=== PATIENT | female | born 1985 | race Caucasian/White ===

== ENCOUNTER 2018-02-09 07:30 | Inpatient (IN) | payer BC ==
[~2018-02-09 07:30] MED LIST: Buffered Lidocaine 0.9% SYRIN* 5 ML/SYR SYRINGE INTRADERM ONE; Dexamethasone IV* 4 MG/ML 1 ML (4 MG) IV SLOW PU ONE; Famotidine IV* 10 MG/ML 2 ML (20 mg) IV ONE
[2018-02-09] MEDS ORDERED: Dexamethasone IV* 4 MG/ML 1 ML (4 MG) ONE (09:05)
[2018-02-09] MEDS ORDERED: Famotidine IV* 10 MG/ML 2 ML (20 mg) ONE (09:05)
[2018-02-09] MEDS ORDERED: Heparin VIAL(*) 5000 UNITS/ML VIAL (FIVE THOUSAND) ONE (09:05)
[2018-02-09] MEDS ORDERED: ceFAZolin 2 GM PREMIX (*) 2 GM/50 ML BAG IVPB ONE (09:06)
[2018-02-09] MEDS ORDERED: fentaNYL* 50 MCG/ML 2 ML VIAL (100 MCG VIAL) ONE ×2 (09:27→12:21)
[2018-02-09] MEDS ORDERED: Midazolam* 1 MG/ML 2 ML VIAL (2 MG) ONE (09:28)
[2018-02-09] MEDS ORDERED: Rocuronium* 10 MG/ML VIAL ONE ×2 (09:35→10:51)
[2018-02-09] MEDS ORDERED: Methylene Blue 0.5 %* 50 MG/10 ML AMP IV ONE (10:06)
[2018-02-09] MEDS ORDERED: Bupivacaine 0.25% W/EPI* 10 ML SDV ONE ×2 (10:06→10:42)
[2018-02-09] MEDS ORDERED: Scopolamine 1.5 mg* PATCH ONE (10:13)
[2018-02-09] MEDS ORDERED: PROCHLORPERAZINE INJ 5 MG/ML 2 ML VIAL IV PRN (10:19)
[2018-02-09] MEDS ORDERED: Acetaminophen IV 1GM/100ML * 1,000 MG/100 ML VIAL IVPB ONE (10:19)
[2018-02-09] MEDS ORDERED: Naloxone* 0.4 MG/ML 1 ML VIAL IV PRN (10:19)
[2018-02-09] MEDS ORDERED: Morphine INJ* 2 MG/ML 1 ML SYRINGE (TWO MG - NEW SYRINGE VERSION) IV PRN (10:19)
[2018-02-09] MEDS ORDERED: Ondansetron INJ* 2 MG/ML VIAL IV PRN ×2 (10:19→13:07)
[2018-02-09] MEDS ORDERED: fentaNYL* 50 MCG/ML 2 ML VIAL (100 MCG VIAL) IV PRN (10:19)
[2018-02-09] MEDS ORDERED: DiMENhydriNATE IV* 50 MG/ML VIAL IV PUSH PRN (10:19)
[2018-02-09] MEDS ORDERED: Lidocaine 2% PF * 5 ML VIAL ONE (12:11)
[2018-02-09] MEDS ORDERED: Propofol* 10 MG/ML 20 ML BTL IV PUSH ONE (12:11)
[2018-02-09] MEDS ORDERED: Acetaminophen ADULT LIQ* 650 MG/20.3 ML UDC PO PRN (13:07)
[2018-02-09] MEDS ORDERED: diPHENhydraMINE IV* 50 MG/ML 1 ml VIAL (BENADRYL) SLOW PUSH PRN (13:07)
[2018-02-09] MEDS ORDERED: HYDROmorphone INJ1* 1 MG/ML SYRINGE IV PRN (13:07)
[2018-02-09] MEDS ORDERED: HYDROcodone/ACET. 7.5/325 LIQ* 15 ML UDC PO PRN (13:07)
[2018-02-09] MEDS ORDERED: Neostigmine Methylsulfate* 1 MG/ML 10 ML VIAL (1 mg/ml) ONE (13:07)
[2018-02-09] MEDS ORDERED: Glycopyrrolate IV* 0.2 MG/ML 1 ML VIAL ONE (13:07)
[2018-02-09] MEDS ORDERED: Ondansetron INJ* 2 MG/ML VIAL ONE ×2 (13:07→13:56)
--- NOTE | 2018-02-09 13:07 | BRIEFOPN ---
Brief Operative Note - Surgery Procedures: Procedures Pre-OP Diagnoses: Clinically severe obesity Post-op Diagnosis: same Procedure: Laparoscopic Kathie an Y gastric bypass Surgeon: Hillary Asst: Aries Anethesia: DALE EBL: minimal IVF: 1000cc LR Specimen: none Drains: none
[2018-02-09] MEDS ORDERED: Acetaminophen IV 1GM/100ML * 100 ML ONE (13:35)
[2018-02-09] MEDS ORDERED: Ketorolac INJ* 30 MG/ML 1 ML VIAL ONE (13:35)
[2018-02-09] MEDS ORDERED: DiMENhydriNATE IV* 50 MG/ML VIAL ONE (13:35)
[2018-02-09] MEDS: Ketorolac INJ* 30 MG/ML 1 ML VIAL IV PRN ×2 (13:39→21:44)
[2018-02-09] MEDS ORDERED: PROCHLORPERAZINE INJ 5 MG/ML 2 ML VIAL ONE (13:56)
[2018-02-09] MEDS ORDERED: Desflurane* 240 ML INH ONE (14:12)
[2018-02-09] MEDS ORDERED: Morphine INJ* 2 MG/ML 1 ML SYRINGE (TWO MG - NEW SYRINGE VERSION) ONE (14:21)
[2018-02-09] MEDS: HYDROmorphone INJ* 0.5 MG/0.5 ML SYRINGE IV PRN ×2 (15:38→18:06)
[2018-02-09] MEDS: Heparin VIAL(*) 5000 UNITS/ML VIAL (FIVE THOUSAND) SUBCUT SCH (16:54)
--- NOTE | 2018-02-09 17:43 | OP ---
CC: Dr. Itz Vanegas; [facility] * DATE OF OPERATION: 02/09/18 - ROOM #352 DATE OF : 81 SURGEON: Dirk Thornton MD [employer]: RJ Fernandez ANESTHESIOLOGIST: Dr. Garvey. ANESTHESIA: General anesthesia. PRE-OP DIAGNOSIS: Clinically severe obesity. POST-OP DIAGNOSIS: Clinically severe obesity. OPERATIVE PROCEDURE: Laparoscopic Kathie-en-Y gastric bypass. ESTIMATED BLOOD LOSS: Minimal. FLUIDS: 1 L of crystalloid fluid given. SPECIMENS: None. COUNTS: Lap, pad count and instrument counts are correct at the end of the procedure. DESCRIPTION OF PROCEDURE: The patient was seen in the preoperative area, marked. Consent was signed. The patient's questions were answered. She was taken to the operating room and placed on the operating table in supine position. Preoperative antibiotics were given. Sequential devices were placed on bilateral lower extremities. General anesthesia was induced. The patient's abdomen was prepped and draped in standard surgical fashion. A time-out was performed. Folds of the umbilicus were elevated anteriorly and a Veress needle was attempted to be inserted into the abdomen. It proved somewhat difficult and it was abandoned and a left upper quadrant incision was made at Gonzales's point. This was deepened down to the anterior fascia, which was elevated with a Juan A and a Veress needle inserted into the abdominal cavity, which was then allowed to insufflate to a pressure of 15 mmHg. The patient tolerated the insufflation well. An upper midline incision was then made and a 12-mm trocar was inserted. Laparoscope was inserted through this. There was no evidence of injury from the trocar insertion or from the Veress needle. Veress needle was removed. Review of the umbilicus, it appeared that we never ever entered the abdomen with the Veress needle. There was some excessive preperitoneal fat at the site of the umbilicus. Additional trocars were then placed in the following position: A 12-mm and 5- mm in the left upper quadrant and a 12-mm and a 5-mm in the right upper quadrant. Attention was turned towards the omentum. This was easily retracted superiorly. The transverse colon was identified and retracted anteriorly and the ligament of Treitz was identified. Approximately 50 cm was counted off in the ligament of Treitz. The bowel was transected at this site and an enterotomy was made. It would become the biliopancreatic limb. We undercut the mesentery with LigaSure device only for about 2 cm. It would become the Kathie limb. We counted approximately 80 cm of Kathie limb. An enterotomy was made and a jejunojejunostomy was created in a standard fashion with a 60-mm street NATE stapling device and the common defect reapproximated with interrupted 2-0 silk sutures in a xexsny-[id number] fashion. The mesenteric defect was similarly closed. We did use clip traveling passenger agent on the Kathie limb for hemostasis as there was some oozing at the staple line. Next, the table was placed in a steep reverse Trendelenburg and a Lauren retractor was inserted through a subxiphoid incision and the left aspect of the liver was retracted anteriorly into the right. This exposed a small gastroesophageal fat pad. Blunt and sharp dissection was carried out to expose the left enriqueta and the angle of His. There was no evidence of hiatal hernia. Next, a retrogastric tunnel was made at approximately the third crossing vessel on the lesser curvature of the stomach. We fired a 45-mm street NATE stapling device across this and used the 2 additional 60-mm street NATE stapling devices to complete the stomach pouch. The second staple line crossed the first staple line and was of appropriate size and we fired this after placing the Pako tube into the stomach pouch to give an idea of the sizing. Next, review of the site, we did place a clip at the top of the stomach pouch and also at the remnant stomach before we fully transected the pouch from the remnant. Staple line did go all the way through, but the cutting did not and for this reason I placed clips at the site. Next, the Kathie limb was brought in apposition to the stomach pouch. There was no tension. We then used 2-0 silk sutures for stay sutures taking the antimesenteric portion of the small bowel Kathie limb and suturing it to the lateral staple of the pouch. Next, a gastrostomy was made over the Pako tube and enterotomy was made at the small bowel, both with cautery. We then utilized the 30-mm street NATE stapling device, placed it into the stomach and small bowel and sutured them with approximately 2 cm of the full distance. The staple line appeared intact and we closed the common defect with 3-0 PDS starting superiorly and inferiorly and tying them in the middle. These were running sutures and closed the defect nicely. We were able to place the Pako tube through the anastomosis into the proximal Kathie limb. A methylene blue dye test was then performed in a standard fashion. There was no evidence of leakage of the blue dye, which was then suctioned back by the anesthesiologist through the tubing. An additional 2-0 silk suture was placed as a second closure overlying the previous PDS suture. We did this in a U fashion. We were able to pass the Pako tube back through the anastomosis with ease and then the Pako tube was removed altogether. This suture was tied. Review of the anastomosis showed no evidence of dehiscence. We looked at the jejunojejunostomy, which was intact without bleeding. There was some blood clot. The table was placed back to neutral. The liver retractor was removed and the abdomen was allowed to collapse. Trocars were removed under direct vision and all 6 skin incisions were reapproximated with 4- 0 Monocryl subcuticular sutures followed by Steri-Strips and sterile dressing. The patient tolerated the procedure well. [id number]/[facility] #: [id number] CAT[place]INA
[2018-02-09] MEDS: Famotidine IV* 10 MG/ML 2 ML (20 mg) IV SLOW PU SCH (20:58)
[2018-02-10] MEDS: Heparin VIAL(*) 5000 UNITS/ML VIAL (FIVE THOUSAND) SUBCUT SCH ×2 (00:28→08:56)
[2018-02-10] MEDS: HYDROmorphone INJ* 0.5 MG/0.5 ML SYRINGE IV PRN (02:54)
[2018-02-10] MEDS: Famotidine IV* 10 MG/ML 2 ML (20 mg) IV SLOW PU SCH (08:56)
[2018-02-10] MEDS: Ketorolac INJ* 30 MG/ML 1 ML VIAL IV PRN (08:57)
--- NOTE | 2018-02-10 09:25 | RAD ---
INDICATION: One day status post Gastric Kathie-en-Y procedure. A evaluate for extravasation or obstruction COMPARISON: None TECHNIQUE: Barium was administered per os and digital fluoroscopy was performed with cine loop and digital spot imaging of the esophagus and operative site. 0.4 minutes of fluoroscopy was utilized. Esophagus: The distal esophagus is normal in caliber and motility. There are no mucosal irregularities GE junction: The GE junction is normally positioned. There is no hiatal hernia. There is no gastroesophageal reflux Stomach: There is gastric Kathie-en-Y procedure. There are no findings of obstruction or extravasation. Delayed imaging demonstrates normal egress of contrast.. IMPRESSION: NORMAL POSTOPERATIVE APPEARANCE. NO EVIDENCE OF OBSTRUCTION OR EXTRAVASATION. CPT II Codes: G9500 PQRS (Fluoro time doc)
--- NOTE | 2018-02-10 11:08 | PN ---
Progress Note - Progress Note Date of Service: 02/10/18 SOAP: Subjective: Pt seen and examined. Feeling well. Wants to go home today no pain Objective: Temp Pulse Resp BP Pulse Ox 97.9 F 66 20 131/70 97 02/10/18 08:52 02/10/18 08:52 02/10/18 08:52 02/10/18 08:52 02/10/18 08:52 Intake & Output 02/09/18 02/10/18 02/10/18 22:59 06:59 14:59 Intake Total 985 985 980 Output Total 1550 300 Balance -565 685 980 a and o x3 lungs clear abdo ; soft/ ND/ NT dressing cdi ext wnl ugi wnl Assessment: pod 1 rygb Plan: PO diet d/c planning - possibly later today
[2018-02-10] MEDS ORDERED: Citalopram TAB* 20 MG PO SCH (13:00)
[2018-02-10] MEDS ORDERED: D5W 1/2 NS KCl 20 Meq 1000 ML* 1,000 ML IV SCH (13:08)
[2018-02-10 14:14] VITALS: BP 131/77
--- NOTE | 2018-02-10 21:17 | DS ---
CC: Dr. Vanegas * DISCHARGE SUMMARY: DATE OF ADMISSION: 02/09/18 DATE OF DISCHARGE: 02/10/18 ATTENDING SURGEON: Dr. Dirk Thornton.* (DICTATED BY MANJINDER MATHIS NP) HOSPITAL COURSE: Please refer to admission history and physical for admission details. The patient was taken to the operating room on 02/09/18, and underwent laparoscopic Kathie-en-Y gastric bypass by Dr. Thornton. She had an uneventful postoperative course, required minimal pain medication and was able to meet the criteria for oral intake of bariatric clear liquids. She was ambulating in the halls and using her Inspiron. She was seen early this morning by Dr. Thornton and by myself this afternoon and she met criteria for discharge. PHYSICAL EXAMINATION: General: Well appearing, in no acute distress. Vital signs are stable. She is afebrile. Her O2 saturation on room air 97%. Lungs: Breath sounds bilaterally clear and equal. Heart: Regular rate and rhythm. No murmurs or rubs appreciated. Abdomen: Laparoscopic port sites are intact with dressings, which are clean and dry. There is no surrounding erythema; she has active bowel sounds. Her abdomen is obese and soft with mild incisional tenderness. Extremities are warm without edema and there is no calf tenderness. IMPRESSION: Postoperative day 1 status post laparoscopic Kathie-en-Y gastric bypass, doing extremely well. PLAN: Discharge home today; instructions were reviewed with the patient; she has a followup office visit at [facility] with Dr. Thornton on 02/18/18. All of her medications were reviewed; she has a prescription for Lortab elixir as needed and she may use [id number] Tylenol for mild pain. MANJINDER MATHIS, LEXY [id number]/[facility] #: [id number] [place]
== END 2018-02-10 15:20 | disposition home or self-care (01) | DRG 403 ==
LOC: AA 08:54 → SSU 14:52
PROVIDERS: ADMIT Surgery; ATTEND Surgery
PROC: 0D164ZA Bypass Stomach to Jejunum, Percutaneous Endoscopic Approach (ICD-10-PCS; principal; 2018-02-10)
DX: E66.01 Morbid (severe) obesity due to excess calories (principal); Z68.41 Body mass index [BMI] 40.0-44.9, adult; F41.9 Anxiety disorder, unspecified; M06.9 Rheumatoid arthritis, unspecified; G47.33 Obstructive sleep apnea (adult) (pediatric); K21.0 Gastro-esophageal reflux disease with esophagitis; Z90.49 Acquired absence of other specified parts of digestive tract; Z82.3 Family history of stroke; Z80.41 Family history of malignant neoplasm of ovary; Z87.891 Personal history of nicotine dependence
CPT/HCPCS: 43644; 74246; 81025; A9270-GY; C1776; J0690; J0780; J1100; J1170; J1240; J1644; J1885; J2250; J2270; J2405; J2704; J2710; J3010

== ENCOUNTER 2018-09-23 22:56 | Emergency (ER) | payer BC ==
[2018-09-24] MEDS ORDERED: NS 0.9% 1000 ML** 2,000 ML IV ONE (00:53)
--- NOTE | 2018-09-24 00:57 | ED ---
Abdominal Pain/Female - HPI Summary HPI Summary: The patient is a 33 year old female who is presenting to the [facility] with a chief complaint of abd pain. The abd pain is intermittent at the RUQ. She has received Bariatric surgery 6 months ago as per triage report. She reports of vomiting that first occurred two nights ago. The episodes stopped at 0400 yesterday Diarrhea has been constant as per patient reports. Symptoms have been improving and the nausea is currently no longer present. Patient states she has not eaten food today (decreased appetite). Medication taken include Imodium and pepto bismol. The last episode of Diarrhea was at 2100 yesterday. The pain is rated to be 5/10 in severity. Symptoms are aggravated by nothing. Symptoms are alleviated by nothing. - History of Current Complaint Chief Complaint: Andrew Stated Complaint: "ABD PAIN/SOB" PER PT Time Seen by Provider: 09/24/18 00:45 Hx Obtained From: Patient Onset/Duration: Sudden Onset Severity Initially: Moderate Severity Currently: Moderate Pain Intensity: 5 Pain Scale Used: 0-10 Numeric Aggravating Factor(s): Nothing Alleviating Factor(s): Nothing Associated Signs and Symptoms: Positive: Diarrhea, Other: - Currently Denie vomitting; Last episode 0400 yesterday.. Negative: Nausea Allergies/Adverse Reactions: Allergies Allergy/AdvReac Type Severity Reaction Status Date / Time No Known Allergies Allergy Verified 02/09/18 09:19 PMH/Surg Hx/FS Hx/Imm Hx Respiratory History: Reports: Hx Sleep Apnea Musculoskeletal History: Reports: Hx Arthritis - RIGHT KNEE Sensory History: Reports: Hx Contacts or Glasses - INSTRUCTS GIVEN Denies: Hx Hearing Aid Opthamlomology History: Reports: Hx Contacts or Glasses - INSTRUCTS GIVEN Psychiatric History: Reports: Hx Anxiety - Taking celexa, Hx Depression - taking celexa - Surgical History Surgery Procedure, Year, and Place: CHOLECYSTECTOMY. bariatric sx Hx Anesthesia Reactions: Yes - EPIDURAL-DIDN'T TAKE, wisdom teeth- trouble coming out of anesthesia Infectious Disease History: No Infectious Disease History: Denies: Traveled Outside the [place] in Last 30 Days - Family History Known Family History: Positive: Cardiac Disease - CVA, Other - Obesity - Social History Alcohol Use: None Substance Use Type: Reports: None Smoking Status (MU): Never Smoked Tobacco Amount Used/How Often: 1/2 PPD Length of Time of Smoking/Using Tobacco: 10 YRS Have You Smoked in the Last Year: No Review of Systems Positive: Other - Decreased Appetite Eyes: Negative ENT: Negative Cardiovascular: Negative Respiratory: Negative Positive: Abdominal Pain - RUQ, Diarrhea, Other - Negative N/V at this time Genitourinary: Negative Musculoskeletal: Negative Skin: Negative Neurological: Negative Psychological: Normal All Other Systems Reviewed And Are Negative: Yes Physical Exam - Summary Physical Exam Summary: VITAL SIGNS: Reviewed. GENERAL: Patient is a well-developed and nourished (FEMALE) who is lying comfortable in the stretcher. Patient is not in any acute respiratory distress. HEAD AND FACE: No signs of trauma. No ecchymosis, hematomas or skull depressions. No sinus tenderness. EYES: PERRLA, EOMI x 2, No injected conjunctiva, no nystagmus. EARS: Hearing grossly intact. Ear canals and tympanic membranes are within normal limits. MOUTH: Oropharynx within normal limits. NECK: Supple, trachea is midline, no adenopathy, no JVD, no carotid bruit, no c- spine tenderness, neck with full ROM. CHEST: Symmetric, no tenderness at palpation LUNGS: Clear to auscultation bilaterally. No wheezing or crackles. CVS: Regular rate and rhythm, S1 and S2 present, no murmurs or gallops appreciated. ABDOMEN: Soft, non-tender. No signs of distention. No rebound no guarding, and no masses palpated. Hyperactive Bowel Sounds EXTREMITIES: FROM in all major joints, no edema, no cyanosis or clubbing. NEURO: Alert and oriented x 3. No acute neurological deficits. Speech is normal and follows commands. SKIN: Dry and warm Triage Information Reviewed: Yes Vital Signs On Initial Exam: Initial Vitals Temp Pulse Resp BP Pulse Ox 98.2 F 92 20 104/77 99 09/23/18 23:04 09/23/18 23:04 09/23/18 23:04 09/23/18 23:04 09/23/18 23:04 Vital Signs Reviewed: Yes Diagnostics - Vital Signs Vital Signs Temp Pulse Resp BP Pulse Ox 09/23/18 23:04 98.2 F 92 20 104/77 99 - Laboratory Result Diagrams: 09/24/18 00:58 09/24/18 00:58 Lab Statement: Any lab studies that have been ordered have been reviewed, and results considered in the medical decision making process. Abdominal Pain Fem Course/Dx - Course Course Of Treatment: The patient is a 33 year old female who is presenting to the [facility] with the chief complaint of abd pain in the RUQ. The patient also reports of diarrhea and states she has had episodes of vomitting last onset at 0400 (09/23/18). The patient is currently receiving fluids in the [facility] (1 L). The symptoms have been improving since entering the [facility] according to the patient. The nausea which was initially present at the onset of the symptoms is no longer present at this time. She is currently feeling better. The patients liver enzymes are elevated which is most likely from viral infection. The dx will be gastroenteritis and the patient will be discharged home. The patient is agreeable to this plan. - Diagnoses Provider Diagnoses: Gastroenteritis Discharge - Sign-Out/Discharge Documenting (check all that apply): Patient Departure Patient Received Moderate/Deep Sedation with Procedure: No - Discharge Plan Condition: Stable Disposition: HOME Prescriptions: Ondansetron ODT TAB* [Zofran 4 MG Odt TAB*] 8 mg PO Q6H PRN #20 tab.odt PRN Reason: Nausea/Vomiting Patient Education Materials: Gastroenteritis (ED) Referrals: Itz Vanegas MD [Primary Care Provider] - Additional Instructions: RETURN TO THE EMERGENCY DEPARTMENT FOR CHANGING OR WORSENING SYMPTOMS. FOLLOW UP WITH YOUR PRIMARY CARE PROVIDER WITHIN 2 TO 3 DAYS - Attestation Statements Document Initiated by Jhonatan: Yes Documenting Scribe: Audie Lyles Provider For Whom Jhonatan is Documenting (Include Credential): Dr. Anai Israel Attestation: Audie Fulton scribed for Dr. Ne Strickland on 09/24/18 at 0349. Status of Scribe Document: Ready
[2018-09-24 01:18] LABS: ABS Basophils 0 10^3/ul (0-0.2); ABS Eosinophils 0 10^3/ul (0-0.6); ABS Lymphocytes 0.5 10^3/ul (1.0-4.8); ABS Monocytes 0.3 10^3/ul (0-0.8); ABS Neutrophils 5.6 10^3/ul (1.5-7.7); ABS Nucleated RBC 0 10^3/ul; Eosinophil % 0.3 %; Hematocrit 41 % (33-41); Hemoglobin 13.9 g/dL (12.0-16.0); Lymphocyte % 8.2 %; Mean Corpuscular HGB Conc 34 g/dL (31-36); Mean Corpuscular Hemoglobin 30 pg (27-31); Mean Corpuscular Volume 88 fL (80-97); Mean Platelet Volume 9.1 fL (7.4-10.4); Nucleated Red Blood Cells % 0; Platelet Count 189 10^3/uL (150-450); Red Blood Count 4.62 10^6 /uL (3.70-4.87); Red Cell Distribution Width 13 % (10.5-15); White Blood Count 6.4 10^3/uL (3.5-10.8)
[2018-09-24 01:31] LABS: ALT 69 U/L (7-52); AST 123 U/L (13-39); Albumin 4.1 g/dL (3.2-5.2); Albumin/Globulin Ratio 1.5 (1-3); Alkaline Phosphatase 117 U/L (34-104); Amylase 42 U/L (29-103); Anion Gap 8 mmol/L (2-11); BUN/Creatinine Ratio 17.3 (8-20); Blood Urea Nitrogen 13 mg/dL (6-24); C Reactive Protein 86.72 mg/L (<8.01); CO2 Carbon Dioxide 20 mmol/L (22-32); Calcium 8.8 mg/dL (8.6-10.3); Chloride 108 mmol/L (101-111); EGFR African American 106.4 (>60); EGFR Non-African American 87.9 (>60); Globulin 2.7 g/dL (2-4); Glucose 106 mg/dL (70-100); Magnesium 1.5 mg/dL (1.9-2.7); Potassium 3.2 mmol/L (3.5-5.0); Sodium 136 mmol/L (135-145); Total Protein 6.8 g/dL (6.4-8.9)
[2018-09-24 01:38] LABS: HCG Pregnancy < 0.60 mIU/mL
[2018-09-24] MEDS ORDERED: Potassium Chlor TAB* 20 MEQ TAB.ER PO ONE (02:07)
[2018-09-24] MEDS ORDERED: Magnesium Sulfate 2 GM IV* 2 GM/50 ML BAG IVPB ONE (02:07)
[2018-09-24 03:46] LABS: Urine Appearance Cloudy; Urine Bacteria Absent (Absent); Urine Bilirubin Negative (Negative); Urine Blood Negative (Negative); Urine Color Amber; Urine Glucose Negative (Negative); Urine Ketones 2+ (Negative); Urine Nitrite Negative (Negative); Urine Protein 2+(100 mg/dL) (Negative); Urine Red Blood Cell Absent (Absent); Urine Specific Gravity 1.036 (1.010-1.030); Urine Squamous Epithelial Cell Present (Absent); Urine Urobilinogen Negative (Negative); Urine White Blood Cell Absent (Absent)
[2018-09-24 03:47] VITALS: BP 128/76
== END 2018-09-24 03:47 | disposition home or self-care (01) ==
LOC: ED 22:56
DX: K52.9 Noninfective gastroenteritis and colitis, unspecified (principal); F32.9 Major depressive disorder, single episode, unspecified; F41.9 Anxiety disorder, unspecified; Z79.899 Other long term (current) drug therapy; Z87.891 Personal history of nicotine dependence
CPT/HCPCS: 36415; 80053; 81003; 81015; 82150; 83690; 83735; 84702; 85025; 86140; 96361; 96374; 99283; A9270-GY; J3475

== ENCOUNTER 2021-04-18 06:04 | Inpatient (IN) ==
[2021-04-18] MEDS ORDERED: Ondansetron 4 mg VIAL 2 MG/ML 2 ml VIAL IV ONE (06:29)
[2021-04-18] MEDS ORDERED: Lactated Ringers 1000 ml BAG 1,000 ML IV ONE (06:29)
[2021-04-18 06:51] LABS: ABS Lymphocytes 0.5 10^3/ul (1.0-4.8); ABS Monocytes 0.4 10^3/ul (0-0.8); ABS Neutrophils 4.1 10^3/ul (1.5-7.7); Eosinophil % 0.3 %; Hematocrit 31 % (35-47); Hemoglobin 11.1 g/dL (12.0-16.0); Mean Corpuscular HGB Conc 36 g/dL (31-36); Mean Corpuscular Hemoglobin 31 pg (27-31); Mean Corpuscular Volume 86 fL (80-97); Mean Platelet Volume 7.6 fL (7.4-10.4); Platelet Count 194 10^3/uL (150-450); Red Blood Count 3.57 10^6 /uL (3.70-4.87); Red Cell Distribution Width 12 % (10-15)
[2021-04-18 07:15] LABS: Albumin 3.4 g/dL (3.2-5.2); Albumin/Globulin Ratio 1.2 (1-3); C Reactive Protein 90.92 mg/L (<8.01); Calcium 8.1 mg/dL (8.6-10.3); Globulin 2.8 g/dL (2-4); Magnesium 1.4 mg/dL (1.9-2.7); Potassium 3.1 mmol/L (3.5-5.0); Total Bilirubin 0.6 mg/dL (0.2-1.0); Total Protein 6.2 g/dL (6.4-8.9)
[2021-04-18 07:17] LABS: HCG Pregnancy 0.87 mIU/mL
[2021-04-18] MEDS ORDERED: Iohexol 300 (CONTRAST) 10 ML SDV IV ONE (07:23)
[2021-04-18] MEDS ORDERED: Potassium Chlor 20 meq TAB.ER PO ONE (07:58)
[2021-04-18] MEDS ORDERED: Magnesium Sulfate 2 gm BAG 2 GM/50 ML BAG IVPB ONE (07:58)
[2021-04-18 11:34] LABS: Urine Appearance Cloudy; Urine Bilirubin Negative (Negative); Urine Blood Negative (Negative); Urine Color Yellow; Urine Glucose Negative (Negative); Urine Ketones 2+ (Negative); Urine Nitrite Negative (Negative); Urine Protein Negative (Negative); Urine Urobilinogen Negative (Negative)
[2021-04-18 11:45] LABS: Urine Bacteria Absent (Absent); Urine Red Blood Cell Trace(0-2/hpf) (Absent); Urine Squamous Epithelial Cell Present (Absent); Urine White Blood Cell 2+(11-20/hpf) (Absent)
[2021-04-18 11:53] LABS: Urine Specific Gravity > 1.060 (1.002-1.030)
[2021-04-18] MEDS ORDERED: Morphine 2 MG/ML SYRINGE IV PRN (15:31)
[2021-04-18 16:10] LABS: Rapid COVID-19 Molecular Undetected (Undetected)
[2021-04-18] MEDS ORDERED: Metoclopramide 5 MG/ML VIAL (10 mg) IV PRN (17:57)
[2021-04-18] MEDS ORDERED: Azithromycin 500 mg/250 ml NS 500 MG/250 ML BAG IVPB SCH (18:30)
[2021-04-19 07:01] LABS: Hematocrit 30 % (35-47); Hemoglobin 10.5 g/dL (12.0-16.0); Mean Corpuscular HGB Conc 35 g/dL (31-36); Mean Corpuscular Hemoglobin 30 pg (27-31); Mean Corpuscular Volume 87 fL (80-97); Mean Platelet Volume 7.3 fL (7.4-10.4); Platelet Count 197 10^3/uL (150-450); Red Blood Count 3.47 10^6 /uL (3.70-4.87); Red Cell Distribution Width 12 % (10-15); White Blood Count 5.5 10^3/uL (3.5-10.8)
[2021-04-19 07:18] LABS: Calcium 7.9 mg/dL (8.6-10.3); Magnesium 1.8 mg/dL (1.9-2.7); Potassium 3.3 mmol/L (3.5-5.0)
[2021-04-19] MEDS ORDERED: Magnesium Sulfate 2 gm BAG 2 GM/50 ML BAG IVPB ONE (07:36)
[2021-04-19] MEDS ORDERED: Potassium Chloride LIQUID 20 MEQ/15 ML LIQUID PO ONE (07:37)
[2021-04-19 16:16] VITALS: BP 108/53
== END 2021-04-19 17:25 | disposition home or self-care (01) | DRG 720 ==
LOC: ED 06:04 → EDHOLD 17:53 → MEDTELE 20:40
PROVIDERS: ADMIT Internal Medicine; ATTEND Internal Medicine

== ENCOUNTER 2021-04-20 17:28 | Observation (INO) ==
[2021-04-20] MEDS ORDERED: NS 0.9% 1000 ml BAG 1,000 ML IV ONE (17:38)
[2021-04-20 17:48] LABS: ABS Eosinophils 0.1 10^3/ul (0-0.6); ABS Lymphocytes 1.2 10^3/ul (1.0-4.8); ABS Monocytes 0.4 10^3/ul (0-0.8); ABS Neutrophils 2.6 10^3/ul (1.5-7.7); Eosinophil % 1.9 %; Hematocrit 36 % (35-47); Hemoglobin 12.3 g/dL (12.0-16.0); Lymphocyte % 28.4 %; Mean Corpuscular HGB Conc 35 g/dL (31-36); Mean Corpuscular Hemoglobin 30 pg (27-31); Mean Corpuscular Volume 86 fL (80-97); Mean Platelet Volume 7.7 fL (7.4-10.4); Platelet Count 286 10^3/uL (150-450); Red Blood Count 4.12 10^6 /uL (3.70-4.87); Red Cell Distribution Width 12 % (10-15); White Blood Count 4.4 10^3/uL (3.5-10.8)
[2021-04-20] MEDS ORDERED: Iodixanol (CONTRAST) 320 MG/ML 100 ML SDV IV ONE (17:51)
[2021-04-20 17:59] LABS: Activated Partial Thrombo Time 27.1 seconds (26.0-38.0); INR 1.04 (0.86-1.15)
[2021-04-20 18:07] LABS: Albumin 3.9 g/dL (3.2-5.2); Albumin/Globulin Ratio 1.1 (1-3); Globulin 3.5 g/dL (2-4); HDL Cholesterol 41.5 mg/dL; Potassium 3.5 mmol/L (3.5-5.0); Total Bilirubin 0.3 mg/dL (0.2-1.0); Total Protein 7.4 g/dL (6.4-8.9); Troponin I 0.01 ng/mL (<0.03)
[2021-04-20 21:23] LABS: Rapid COVID-19 Molecular Undetected (Undetected)
[2021-04-20 23:05] LABS: Urine Appearance Clear; Urine Bilirubin Negative (Negative); Urine Blood Negative (Negative); Urine Color Yellow; Urine Glucose Negative (Negative); Urine Ketones 1+ (Negative); Urine Nitrite Negative (Negative); Urine Protein Negative (Negative); Urine Specific Gravity 1.057 (1.002-1.030); Urine Urobilinogen Negative (Negative)
[2021-04-20 23:21] LABS: Urine Benzodiazepine Screen None Detected (None Detect); Urine Cannabinoids Screen None Detected (None Detect); Urine Opiates Screen None Detected (None Detect)
[2021-04-22 15:42] VITALS: BP 116/73
== END 2021-04-22 18:15 | disposition home or self-care (01) ==
LOC: EDHOLD 17:28 → ED 17:28 → SUATTDRO 20:22 → MEDTELE 04-21 14:59
PROVIDERS: ADMIT Internal Medicine; ATTEND Hospitalist

== ENCOUNTER 2023-03-21 14:01 | Observation (INO) ==
[2023-03-21] MEDS ORDERED: Al Hydrox/Mg Hydrox/Simet LIQ 30 ML UDC PO ONE (14:11)
[2023-03-21 15:03] LABS: ABS Eosinophils 0.1 10^3/uL (0.0-0.5); ABS Lymphocytes 1.5 10^3/uL (1.0-4.8); ABS Monocytes 0.2 10^3/uL (0.0-0.9); ABS Neutrophils 3.5 10^3/uL (1.5-7.6); ABS Nucleated RBC 0.01 10^3/ul; Eosinophil % 2.7 %; Hematocrit 34.3 % (35-45); Lymphocyte % 27.2 %; Mean Corpuscular Hemoglobin 30.8 pg (27-33); Mean Corpuscular Hgb Conc 35.2 g/dL (31-36); Mean Corpuscular Volume 87.7 fL (80-97); Mean Platelet Volume 8.7 fL (7.5-11.2); Nucleated Red Blood Cells % 0.2 /100 WBC (0.0-0.4); Platelet Count 176 10^3/uL (150-450); Red Blood Count 3.91 10^6/uL (3.63-4.92); Red Cell Distribution Width 13.2 % (12-17); White Blood Count 5.4 10^3/uL (3.8-11.8)
[2023-03-21 15:12] LABS: Calcium 8.6 mg/dL (8.6-10.3); Potassium 3.9 mmol/L (3.5-5.0); Total Bilirubin 0.5 mg/dL (0.2-1.0)
[2023-03-21 15:18] LABS: Albumin/Globulin Ratio 1.7 (1-3); Creatinine, Serum 0.88 mg/dL (0.51-0.95); Globulin 2.4 g/dL (2-4); Total Protein 6.4 g/dL (6.4-8.9); eGFR CKD-EPI 85.7 (>60)
[2023-03-21] MEDS ORDERED: Ondansetron 4 mg VIAL 2 MG/ML 2 ml VIAL IV PRN (17:13)
[2023-03-21] MEDS ORDERED: Acetaminophen IV 1 GM/100ML 1,000 MG/100 ML BAG IV PRN (17:16)
[2023-03-21] MEDS ORDERED: HYDROmorphone 0.5 MG/0.5 ML SYRINGE IV SLOW PU PRN (17:29)
[2023-03-21] MEDS ORDERED: Sterile Water for Inj 10 ML ONE (17:39)
[2023-03-21] MEDS: Pantoprazole VIAL 40 MG VIAL IV SCH (17:59)
[2023-03-21] MEDS ORDERED: Lactated Ringers 1000 ml BAG 1,000 ML IV SCH (18:00)
[2023-03-21] MEDS ORDERED: Thiamine 100 MG/ML 2 ml VIAL 100 MG, Folic Acid IV 1 MG, Multiple Vitamin IV ADULT 10 M... IV ONE (19:00)
[2023-03-22 07:09] LABS: Albumin 3.4 g/dL (3.2-5.2); Albumin/Globulin Ratio 1.6 (1-3); Calcium 8.1 mg/dL (8.6-10.3); Creatinine, Serum 0.78 mg/dL (0.51-0.95); Globulin 2.1 g/dL (2-4); Potassium 3.9 mmol/L (3.5-5.0); Total Bilirubin 0.3 mg/dL (0.2-1.0); Total Protein 5.5 g/dL (6.4-8.9)
[2023-03-22] MEDS: Pantoprazole VIAL 40 MG VIAL IV SCH (14:03)
[2023-03-22 15:43] VITALS: BP 120/69
== END 2023-03-22 15:43 | disposition home or self-care (01) ==
LOC: EDHOLD 14:01 → ED 14:01 → EDHOLD 03-22 15:42
PROVIDERS: ADMIT Surgery; ATTEND Surgery